=== PATIENT | male | born 1960 | race Two or more races ===

== ENCOUNTER 2024-10-21 18:46 | Emergency (ER) | payer OTHER ==
[~2024-10-21] VITALS: Ht 170.2 cm; Wt 102.1 kg
[2024-10-21] MEDS ORDERED: KAPSPARGO SPRIN25 MG (18:59)
[2024-10-21] MEDS ORDERED: NORVASC2.5 M1 (18:59)
[2024-10-21] MEDS ORDERED: 0.9 % SODIUM CHLORIDE 1,000 ML IV ONE (19:00)
[2024-10-21] MEDS ORDERED: FAMOtidine 10 MG/ML (4ML VIAL) IV ONE (19:00)
[2024-10-21] MEDS ORDERED: ONDANSETRON HCL 2 MG/ML VIAL IV ONE (19:00)
[2024-10-21] MEDS ORDERED: LABETALOL HCL 200 MG/40 ML VIAL IV ONE (19:00)
[2024-10-21] MEDS ORDERED: NIFEDIPINE 10 MG CAPSULE PO ONE ×2 (19:00→19:05)
[2024-10-21] MEDS ORDERED: ONDANSETRON HCL 2 MG/ML VIAL ONE (19:06)
[2024-10-21] MEDS ORDERED: FAMOTIDINE/PF 20 MG/2 ML VIAL ONE (19:06)
[2024-10-21] MEDS ORDERED: LABETALOL HCL 100 MG/20 ML ML ONE ×2 (19:06→21:04)
[2024-10-21] MEDS ORDERED: CLEVIDIPINE BUTYRATE 50 MG/100 ML VIAL IV SCH (19:15)
[2024-10-21] MEDS ORDERED: INSULIN REGULAR, HUMAN 1,000 UNIT/10 ML UNITS IV ONE (19:15)
[2024-10-21 19:33] LABS: BASO % 0.4 % (0.1-1.2); EOS # 0.15 (0.04-0.54); EOS % 1.6 % (0.7-7.0); HEMATOCRIT 43.6 % (40.1-51.0); HEMOGLOBIN 15.2 g/dL (13.7-17.5); LYMPH # 3.87 (1.18-3.74); LYMPH % 40.5 % (19.3-53.1); MEAN CORPUSCULAR HEMOGLOBIN 26.2 pg (25.6-32.2); MONO # 0.69 (0.24-0.82); MONO % 7.2 % (4.7-12.5); NEUT # 4.74 (1.56-6.13); NEUT % 49.7 % (34.0-71.1); PLATELET COUNT 200 K/uL (163-369)
[2024-10-21 19:50] LABS: INR 1.04; PARTIAL THROMBOPLASTIN TIME 21.9 SECONDS (22.0-34.0); PROTHROMBIN TIME 11.3 SECONDS (9.0-11.5)
[2024-10-21 20:09] LABS: ALBUMIN 3.9 gm/dL (3.4-5.0); BILIRUBIN TOTAL 0.59 mg/dL (0.3-1.2); CREATININE SERUM 1.05 mg/dL (0.70-1.30); GFR 70.67; GLOBULINA 3.7 G/DL (2.4-3.5); TOTAL PROTEIN 7.6 gm/dL (6.4-8.2)
[2024-10-21 20:24] LABS: URINE APPEARANCE Clear; URINE BACTERIA 14.6 uL (0.0-1933); URINE BILIRRUBIN Negative (NEGATIVE); URINE BLOOD Negative; URINE COLOR Yellow; URINE EPITHELIAL CELLS 1.4 uL (0.0-38.8); URINE KETONE Negative (NEGATIVE); URINE LEUKOCYTE Negative; URINE NITRATE Negative; URINE PROTEIN 30 (NEGATIVE); URINE UROBILINOGEN 0.2 E.U./dl; URINE WBC 2.3 uL (0.0-23.2)
[2024-10-21] MEDS ORDERED: POTASSIUM CHLORIDE/D5-0.9%NACL 20 MEQ/1,000 ML PIGGYBAG IV ONE (20:27)
[2024-10-21 20:29] LABS: URINE CAST 0.14 uL (0.0-1.40); URINE GLUCOSE >=1000 MG/DL (NEGATIVE); URINE RBC 1.7 uL (0.0-20.8)
[2024-10-21] MEDS ORDERED: POTASSIUM CHLORIDE/NACL 0.9% 20 MEQ/1,000 ML PIGGYBAG IV ONE (20:30)
[2024-10-21 21:59] LABS: POTASSIUM 2.92 mEq/L (3.5-5.1)
== END 2024-10-21 22:36 | disposition designated cancer center or children's hospital (05) ==
LOC: ER 18:46
PROVIDERS: General Practice
DX: R42 Dizziness and giddiness (principal); E11.9 Type 2 diabetes mellitus without complications; I10 Essential (primary) hypertension
CPT/HCPCS: 36415; 70450; 93005; 93041; 96365; 96366; 99285; J1815; J2405; J3480; J3490 ×3; J7030